=== PATIENT | male | born 1965 | race Caucasian/White ===

== ENCOUNTER 2019-06-20 16:19 | Observation (INO) ==
[2019-06-20 16:41] LABS: Basophils % 0.2 % (0.1-2.0); Eosinophils # 0.1 K/mm3 (0.0-0.4); Eosinophils % 0.3 % (0.1-12.0); Hematocrit 52.9 % (42.0-52.0); Hemoglobin 17.9 g/dL (14.1-18.0); Lymphocytes # 0.6 K/mm3 (0.7-4.5); Lymphocytes % 4.2 % (10-50); Mean Corpuscular HGB Conc 33.9 g/dL (31.8-35.4); Mean Corpuscular Volume 87.6 fl (80-94); Mean Platelet Volume 9.3 fl (7.4-10.4); Monocytes # 0.7 K/mm3 (0.1-1.0); Monocytes % 4.5 % (1.7-9.3); Neutrophils # 13.9 K/mm3 (1.8-7.8); Neutrophils % 90.9 % (37.0-80.0); Platelet Count 176 K/mm3 (142-424); Red Blood Count 6.03 M/mm3 (4.60-6.20); Red Cell Distribution Width 13.2 % (11.5-17.5); White Blood Count 15.3 K/mm3 (4.8-10.8)
[2019-06-20 16:54] LABS: Lymphocytes % 5 % (10-50); Monocytes % 4 % (2-9); Neutrophils % 91 % (42-76); RBC Morphology Normal; Total Cells Counted 100
--- NOTE | 2019-06-20 17:04 | Emergency Department Note ---
ED Disposition Clinical Impression: Tachycardia Disposition: Admitted as Observation Condition on Discharge: Fair Referrals: Provider,Referral, [Primary Care Provider] - - Critical Care Critical Care Time: No Attestation: On 06/20/19, the high probability of a clinically significant, sudden or life threatening deterioration of the following system(s) required my full and direct attention, intervention and personal management. The time I documented below is in addition to time spent performing reported procedures but includes the following listed in this critical care notation. Medical Decision Making - Valentin Inquiry Pt receiving controlled substance: No Valentin was queried for this patient: No Vital Signs: 06/20/19 16:19 06/20/19 17:04 06/20/19 18:30 Temperature 98.8 F Temperature Source Oral Pulse Rate Pulse Rate [Right Radial] 119 H 112 H 108 H Respiratory Rate 18 20 Blood Pressure Blood Pressure [Right Arm] 128/85 143/70 H 148/89 H Blood Pressure Mean [Right Arm] 99 94 108 Blood Pressure Source [Right Arm] Automatic Cuff Automatic Cuff Blood Pressure Position [Right Arm] Sitting Sitting 02 Sat by Pulse Oximetry 97 96 98 Oxygen Delivery Method Room Air Room Air Room Air 06/20/19 20:06 06/20/19 21:53 Temperature 98.2 F 98.3 F Temperature Source Oral Pulse Rate 118 H Pulse Rate [Right Radial] 105 H Respiratory Rate 18 18 Blood Pressure 154/92 H Blood Pressure [Right Arm] 149/81 H Blood Pressure Mean [Right Arm] 103 Blood Pressure Source [Right Arm] Automatic Cuff Blood Pressure Position [Right Arm] Sitting 02 Sat by Pulse Oximetry 98 Oxygen Delivery Method Room Air Room Air - Lab Data Lab Results 06/20/19 16:25: WBC 15.3 H, RBC 6.03, Hgb 17.9, Hct 52.9 H, MCV 87.6, MCH 29.7, MCHC 33.9, RDW 13.2, Plt Count 176, MPV 9.3, Neut % (Auto) 90.9 H, Lymph % (Auto) 4.2 L, [place] % (Auto) 4.5, Eos % (Auto) 0.3, Baso % (Auto) 0.2, Neut # (Auto) 13.9 H, Lymph # (Auto) 0.6 L, [place] # (Auto) 0.7, Eos # (Auto) 0.1, Baso # (Auto) 0.0, Total Counted 100, Neutrophils % (Manual) 91 H, Lymphocytes % (Manual) 5 L, Monocytes % (Manual) 4, Platelet Estimate Normal, RBC Morphology Normal 06/20/19 16:25: Sodium 139, Potassium 3.6, Chloride 102, Carbon Dioxide 20 L, Anion Gap 20.6 H, BUN 28 H, Creatinine 1.12, Estimated Creat Clear 92, Estimated GFR 69, Est GFR ( Amer) 83, Glucose 238 H, Calcium 8.4 L, Total Bilirubin 0.7, Direct Bilirubin 0.1, Indirect Bilirubin 0.6, AST 16, ALT 32, Alkaline Phosphatase 69, Troponin I < 0.02, Total Protein 7.6, Albumin 3.9 06/20/19 17:04: Influenza Type A Ag Negative, Influenza Type B Ag Negative 06/20/19 17:20: Lactate 2.0 06/20/19 18:28: VBG pH 7.32, VBG pCO2 31.3 L, VBG pO2 68.4 H, VBG HCO3 15.7 L, VBG Total CO2 16.6 L, VBG O2 Saturation 93.2 H, VBG Base Excess -10.5 L 06/20/19 18:40: Urine Color Yellow, Urine Appearance Clear, Urine pH 5.5, Ur Specific [place] 1.020, Urine Protein Negative, Urine Glucose (UA) 3+, Urine Ketones 2+, Urine Blood Trace-l, Urine Nitrate Negative, Urine Bilirubin Negative, Urine Urobilinogen 0.2, Ur Leukocyte Esterase Negative, Urine RBC 3-5, Urine WBC 3-5, Ur Squamous Epith Cells Occasional, Urine Bacteria Trace 06/20/19 20:01: POC Glucose 133 H 06/20/19 20:10: Troponin I 0.03 Result diagrams: 06/20/19 16:25 06/20/19 16:25 Orders (Tests/Meds): ED MEDICATIONS Generic Name Dose Route Start Last Admin Trade Name Freq PRN Reason Stop Dose Admin Lactated Ringer's 500 mls @ 999 mls/hr 06/20/19 17:00 06/20/19 17:00 Lactated Ringer's 1000 Ml Bag IV 06/20/19 17:30 Not Given .Q31M LUIS EDUARDO Lactated Ringer's 1,000 mls @ 999 mls/hr 06/20/19 17:15 06/20/19 17:02 Lactated Ringer's 1000 Ml Bag IV 06/20/19 18:15 999 mls/hr .Q1H1M LUIS EDUARDO Administration Lactated Ringer's 1,000 mls @ 999 mls/hr 06/20/19 18:30 06/20/19 18:44 Lactated Ringer's 1000 Ml Bag IV 06/20/19 19:30 Not Given .Q1H1M LUIS EDUARDO Sodium Chloride 1,000 mls @ 999 mls/hr 06/20/19 18:45 06/20/19 18:46 Sod Chlor 0.9% 1000ml Bag IV 06/20/19 19:45 999 mls/hr .Q1H1M LUIS EDUARDO Administration Sodium Chloride 10 ml 06/20/19 18:19 Saline Flush 10ml Syringe IV 06/21/19 06:19 NEEDED PRN Maintain IV Site Discontinued Medications Generic Name Dose Route Start Last Admin Trade Name Freq PRN Reason Stop Dose Admin Ioversol 100 ml 06/20/19 20:00 06/20/19 20:01 Rad-Optiray 350 100ml Vial IV 06/20/19 20:01 100 ml ONCE ONE Administration Protocol Sodium Chloride 50 ml 06/20/19 20:00 06/20/19 20:01 Rad-Ns 50ml Vial IV 06/20/19 20:01 50 ml ONCE ONE Administration Sodium Chloride 10 ml 06/20/19 20:00 06/20/19 20:01 Rad-Saline Flush 10ml Syringe IV 06/20/19 20:01 10 ml ONCE ONE Administration ORDERS Category Date Time Status CT abdomen pelvis w con Stat Cat Scan 06/20/19 18:[address] angio chest Stat Cat Scan 06/20/19 18:47 Taken XR chest 2V Stat Exams 06/20/19 16:26 Taken Free T4 (Free Thyroxine) Routine Lab 06/20/19 20:10 Received Magnesium Stat Lab 06/20/19 20:10 Received Thyroid Stimulating Hormone Routine Lab 06/20/19 20:10 Received Troponin I Q3H Lab 06/20/19 23:10 Ordered Blood Culture Stat Micro 06/20/19 21:05 Received Arterial Blood Gas Routine RT 06/20/19 18:27 Received VBG [Venous Blood Gas] Stat RT 06/20/19 17:47 Ordered Medical Decision Narrative: In summary patient is a nontoxic-appearing 54-year-old male who presents to the emergency department for evaluation of tachycardia. She is vital signs within normal limits except for his heart rate of 119. Patient's exam otherwise within normal limits. EKG reviewed showing sinus tachycardia no ST elevation, depression, or QT prolongation. No evidence of arrhythmia such as A. fib, patient's EKG consistent with SVT. Differential diagnosis is broad for this patient including dehydration, sepsis, or inflammatory response. Given this ordered CBC, CMP, lactate, influenza swab, urinalysis, chest x-ray, troponin panel. Given 1 L IV fluid bolus. Patient's initial labs returned and show him to have a white count of 15.8 with a left-sided shift. Noted to have an anion gap of 20, given this VBG ordered. The labs nonactionable. Patient's VBG shows patient to have a pH of 7.32. With no evidence of acidosis,, or lab value pointing towards likely cause of the patient's tachycardia, ordered CTA chest, CT abdomen and pelvis. On re-evaluation patient still tacky with heart rates ranging from 110 - 120. Second liter bolus of IV fluids. Patient CTs returned showing no evidence of pulmonary embolism or acute pulmonary disease, patient does have evidence of chronic granulomatosis. CT ofhis abdomen and pelvis were negative for any acute disease. On reevaluation patient continues to be tachycardic. With continued tachycardia with no known source, and leukocytosis, I believe patient would benefit from inpatient admission for further evaluation. Dr. Katharine Diaz is agreed to admit the patient for further evaluation. He recommends ordering TSH, magnesium, cardiac echo for the morning. General Adult HPI - General Chief complaint: Arrhythmia/Palpitations Stated complaint: tachycardia Time Seen by Provider: 06/20/19 16:30 Mode of Arrival: Ambulatory Limitations: No Limitations Description of Symptoms (Recalled from ER Triage Doc. by RN): pt presents to ed with c/o tachycardia. pt states that he is having reflux symptoms. pt states he ate some fried chicken last night and he battled that throughout the night, along with his "heart beating out of his chest" and he is still having some reflux symptoms. pt was at his doctor today and was told his heartrate was higher than normal. - History of Present Illness HPI narrative: Patient is a 54-year-old male with a past medical history of type 2 diabetes, who presents to the emergency department for evaluation of tachycardia. States he awoke at 2 AM this morning heart palpitations. States that he felt lightheaded, but denies any chest pain or shortness of breath. She states the symptoms have continued throughout the day so he presented to his clinic he was noted to be tachycardic on exam. Patient sent to the emergency department for further evaluation. Here in the emergency department patient denies any recent illness, any fevers, chills, nausea, vomiting, chest pain, shortness of breath, abdominal pain, or dysuria. - Related Data Home Medications Medication Instructions Recorded Confirmed Unobtainable 06/20/19 06/20/19 Allergies Allergy/AdvReac Type Severity Reaction Status Date / Time No Known Allergies Allergy Verified 06/20/19 16:26 [facility] History - Hepatitis A Screen Drug use history?: No High risk sexual behaviors?: No History of sexually transmitted infection?: No Currently employed?: No Childcare worker?: No Do you have indoor plumbing?: Yes Do you have electricity?: Yes Attestation statement:: This patient has been screened for Hepatitis A risk factors. I have reviewed the patient's past medical history: Yes Medical History: Reports:: Diabetes Mellitus Type 2 Denies:: Diabetes Mellitus Type 1 - Social History Smoking Status: Former smoker Alcohol Intake: never Occupational Status: employed ROS Obtained: Yes All systems reviewed & no additional complaints Physical Exam - General General appearance: alert, in no apparent distress - Head Head exam: atraumatic - Eye Eye exam: Present: normal appearance - Respiratory Respiratory exam: Present: normal lung sounds bilaterally - Cardiovascular Cardiovascular exam: Present: normal rhythm, tachycardia - Abdominal Exam Abdominal exam: Present: soft. Absent: distention, tenderness - Neurological Exam Neurological exam: Present: alert, oriented X3 - Psychiatric Psychiatric exam: Present: normal affect, normal mood
[2019-06-20 17:12] LABS: Alanine Aminotransferase 32 U/L (21-72); Albumin Level 3.9 g/dL (3.4-5.0); Alkaline Phosphatase 69 U/L (46-116); Anion Gap 20.6 mEq/L (5-15); Aspartate Amino Transferase 16 U/L (15-37); Bilirubin,Direct 0.1 mg/dL (0.0-0.2); Bilirubin,Indirect 0.6 mg/dL (0.0-0.9); Bilirubin,Total 0.7 mg/dL (0.2-1.0); Blood Urea Nitrogen 28 mg/dL (7-18); Calcium 8.4 mg/dL (8.5-10.1); Carbon Dioxide 20 mmol/L (21.0-32.0); Chloride 102 mmol/L (98-107); Glucose 238 mg/dL (74-106); Sodium 139 mmol/L (137-145); Total Protein,Serum 7.6 g/dL (6.4-8.2)
[2019-06-20 18:29] LABS: VBG Base Excess -10.5 mmol/L (-2.4-2.3); VBG HCO3 15.7 mmol/L (23-30); VBG Oxygen Saturation 93.2 % (50-70); VBG PCO2 31.3 mmol/L (35-51); VBG PH 7.32 mmol/L (7.31-7.41); VBG PO2 68.4 mmol/L (28-40); VBG Total CO2 16.6 mmol/L (23-27)
[2019-06-20 18:44] LABS: Microscopic, Urine URINE MICROSCOPIC (MICROSCOPIC)
[2019-06-20 18:54] LABS: Appearance,Urine CLEAR (Clear); Bilirubin,Urine Negative (Negative); Blood, Urine TRACE-L (Negative); Color,Urine YELLOW (Yellow); Glucose,Urine (UA) 3+ (Negative); Ketones,Urine 2+ (Negative); Leukocyte Esterase,Urine Negative (Negative); PH,Urine 5.5 (5.0-8.5); Protein,Urine Negative (Negative); Urobilinogen,Urine 0.2 EU/dl (0.2)
[2019-06-20 19:08] LABS: Bacteria,Urine Trace /lpf; Squamous Epithelial Cell,Urine Occasional #/hpf (0-5)
[2019-06-20 21:50] LABS: Free T4 (Free Thyroxine) 1.37 ng/dl (0.76-1.46); Thyroid Stimulating Hormone 1.24 uIU/ml (0.358-3.740)
[2019-06-21 06:49] LABS: Basophils % 0.5 % (0.1-2.0); Eosinophils % 0.3 % (0.1-12.0); Hematocrit 48.6 % (42.0-52.0); Lymphocytes # 1.2 K/mm3 (0.7-4.5); Mean Corpuscular HGB Conc 33.2 g/dL (31.8-35.4); Mean Corpuscular Volume 92.1 fl (80-94); Mean Platelet Volume 9.5 fl (7.4-10.4); Monocytes # 0.6 K/mm3 (0.1-1.0); Monocytes % 6.5 % (1.7-9.3); Neutrophils # 6.7 K/mm3 (1.8-7.8); Neutrophils % 78.7 % (37.0-80.0); Platelet Count 153 K/mm3 (142-424); Red Blood Count 5.28 M/mm3 (4.60-6.20); Red Cell Distribution Width 13.3 % (11.5-17.5); White Blood Count 8.6 K/mm3 (4.8-10.8)
[2019-06-21 07:04] LABS: Anion Gap 20.7 mEq/L (5-15); Chol/HDL Ratio 2.4 (1-3.5)
--- NOTE | 2019-06-21 07:19 | Pharmacy Consult Notes ---
[facility] Pharmacy VTE Monitoring - Patient Demographics Admission date: 06/20/19 Report Date: 06/21/19 Time: 07:19 Allergies/Adverse Reactions: Patient Allergies No Known Allergies Allergy (Verified 06/20/19 16:26) Height: 1.75 m Weight: 85.389 kg Patient Problems: Current Active Problems Tachycardia (Acute) - VTE Risk Labs: VTE Related Lab Results Hgb 17.9 g/dL (14.1-18.0) 06/20/19 16:25 Hct 48.6 % (42.0-52.0) 06/21/19 06:34 Plt Count 153 K/mm3 (142-424) 06/21/19 06:34 BUN 19 mg/dL (7-18) H D 06/21/19 06:34 Creatinine 0.89 mg/dL (0.70-1.30) D 06/21/19 06:34 Estimated Creat Clear 117 mL/min (50-200) 06/21/19 06:34 VTE Score: 1 VTE Risk Level: Very Low Risk - Prophylaxis VTE Prophylaxis Ordered?: Yes Types of VTE Prophylaxis: TEDS Knee High Location of Applied Device: Bilateral Lower Extremeties
--- NOTE | 2019-06-21 08:58 | History & Physical Report ---
*Admission Date: 06/20/19 *Chief complaint: Tachycardia *History of present illness: 54-year-old white male with type 2 diabetes and hyperlipidemia presented to the emergency department with tachycardia. He reports that 3 AM in the morning before admission he woke up with a feeling of heart racing and some minimal GERD symptoms. He had eaten a fairly large dinner of fried chicken, a bowl of cereal and cake the evening before and thought this was from the food. He was able to go back to sleep but throughout the day yesterday continued to have tachycardia. He had an appointment with his family practitioner in [place], [place] for a wellness exam yesterday afternoon. He went to the wellness exam and was noted to have a pulse rate of 120 and was told by his physician to "go somewhere and get that checked out." He then reported to the emergency department where a very nice and thorough work-up was done including normal labs including TSH, electrolytes and normal EKG. CT scan of chest was done to rule out PE and this was negative. CT of abdomen and pelvis to rule out occult infection was done because of leukocytosis. Influenza serologic testing was negative. Patient denies any cold or cough medicines recently. Denies illicit drugs or take any nonprescribed substances specifically cocaine or marijuana. Patient does not smoke. He does occasionally drink to excess but notes that his last alcohol ingestion was 1 beer 3 days before admission with supper. He does note an episode of shortness of air and muscle fatigue after moving a very heavy filing cabinet 24 hours before the episode started. He was admitted to observation for telemetry monitoring. [facility] History I have reviewed the patient's past medical history: Yes Medical History: Reports:: Cancer, Diabetes Mellitus Type 2, Hyperlipidemia, Hypertension Denies:: Diabetes Mellitus Type 1, MRSA *Have you ever received a pneumonia vaccine?: Yes *Have you received a flu vaccine this season?: Yes Other Surgeries: Yes: Skin Cancer Excision (From behind left ear.) Amputation: No Fractures: No - *Social History Educational Level: Attended High School Smoking Status: Former smoker Alcohol Intake: current Alcohol Intake Frequency:: a few times a month *Occupational Status:: employed Household Members: spouse *Travel in the last 8 weeks: None Family Hx:: Diabetes, Heart Attack, Hypertension, Alcoholism Review of Systems - Review of Systems Review of systems:: pertinent systems reviewed and negative unless documented below Please see HPI. 10 point review of systems otherwise negative although patient does endorse symptoms of cold and cough recently with sinus pressure and some headache. Denies productive cough. Meds Home Medications Medication Instructions Recorded Confirmed Type Dapagliflozin Propanediol [Farxiga] 5 mg PO DAILY 06/20/19 06/20/19 History Metformin HCl [Metformin 1000mg 1,000 mg PO BID 06/20/19 06/20/19 History Tablets] Pravastatin Sodium [Pravachol] 20 mg PO DAILY 06/20/19 06/20/19 History Sitagliptin Phosphate [Januvia 25 mg PO DAILY 06/20/19 06/20/19 History 25mg Tablet] glyBURIDE [Diabeta 5mg tablet] 10 mg PO BID 06/20/19 06/20/19 History lisinopriL [Lisinopril 20mg Tab] 20 mg PO DAILY 06/20/19 06/20/19 History Allergies Allergy/AdvReac Type Severity Reaction Status Date / Time No Known Allergies Allergy Verified 06/20/19 16:26 Exam Vital signs and Labs for Last 24 Hours: Temp Pulse Resp BP Pulse Ox 98.6 F 115 H 18 151/95 H 94 L 06/21/19 08:00 06/21/19 08:00 06/21/19 08:00 06/21/19 08:00 06/21/19 08:00 Laboratory Results - last 24 hr 06/20/19 16:25: WBC 15.3 H, RBC 6.03, Hgb 17.9, Hct 52.9 H, MCV 87.6, MCH 29.7, MCHC 33.9, RDW 13.2, Plt Count 176, MPV 9.3, Neut % (Auto) 90.9 H, Lymph % (Auto) 4.2 L, [place] % (Auto) 4.5, Eos % (Auto) 0.3, Baso % (Auto) 0.2, Neut # (Auto) 13.9 H, Lymph # (Auto) 0.6 L, [place] # (Auto) 0.7, Eos # (Auto) 0.1, Baso # (Auto) 0.0, Total Counted 100, Neutrophils % (Manual) 91 H, Lymphocytes % (Manual) 5 L, Monocytes % (Manual) 4, Platelet Estimate Normal, RBC Morphology Normal 06/20/19 16:25: Sodium 139, Potassium 3.6, Chloride 102, Carbon Dioxide 20 L, Anion Gap 20.6 H, BUN 28 H, Creatinine 1.12, Estimated Creat Clear 92, Estimated GFR 69, Est GFR ( Amer) 83, Glucose 238 H, Calcium 8.4 L, Total Bilirubin 0.7, Direct Bilirubin 0.1, Indirect Bilirubin 0.6, AST 16, ALT 32, Alkaline Phosphatase 69, Troponin I < 0.02, Total Protein 7.6, Albumin 3.9 06/20/19 17:04: Influenza Type A Ag Negative, Influenza Type B Ag Negative 06/20/19 17:20: Lactate 2.0 06/20/19 18:28: VBG pH 7.32, VBG pCO2 31.3 L, VBG pO2 68.4 H, VBG HCO3 15.7 L, VBG Total CO2 16.6 L, VBG O2 Saturation 93.2 H, VBG Base Excess -10.5 L 06/20/19 18:40: Urine Color Yellow, Urine Appearance Clear, Urine pH 5.5, Ur Specific [place] 1.020, Urine Protein Negative, Urine Glucose (UA) 3+, Urine Ketones 2+, Urine Blood Trace-l, Urine Nitrate Negative, Urine Bilirubin Negative, Urine Urobilinogen 0.2, Ur Leukocyte Esterase Negative, Urine RBC 3-5, Urine WBC 3-5, Ur Squamous Epith Cells Occasional, Urine Bacteria Trace 06/20/19 20:01: POC Glucose 133 H 06/20/19 20:10: Troponin I 0.03 06/20/19 20:10: Magnesium 1.7 06/20/19 20:10: TSH 1.24, Free T4 1.37 06/20/19 23:11: Troponin I 0.03 06/21/19 06:34: WBC 8.6 D, RBC 5.28, Hgb 16.0 D, Hct 48.6, MCV 92.1, MCH 30.5, MCHC 33.2, RDW 13.3, Plt Count 153, MPV 9.5, Neut % (Auto) 78.7, Lymph % (Auto) 14.0, [place] % (Auto) 6.5, Eos % (Auto) 0.3, Baso % (Auto) 0.5, Neut # (Auto) 6.7, Lymph # (Auto) 1.2, [place] # (Auto) 0.6, Eos # (Auto) 0.0, Baso # (Auto) 0.0 06/21/19 06:34: Sodium 139, Potassium 3.7, Chloride 105, Carbon Dioxide 17 L, Anion Gap 20.7 H, BUN 19 H D, Creatinine 0.89 D, Estimated Creat Clear 117, Estimated GFR 90, Est GFR ( Amer) 109 D, Glucose 162 H D, Calcium 8.0 L, Triglycerides 77, Cholesterol 93 L, LDL Cholesterol 40, VLDL Cholesterol 15, HDL Cholesterol 38, Cholesterol/HDL Ratio 2.4 I & O for Last 24 hours: Intake & Output 06/18/19 06/19/19 06/20/19 06/21/19 11:59 11:59 11:59 11:59 Intake Total 2620 / 2620 Balance 2620 / 2620 Weight 188 lb 4 oz - *Routine HEENT Exam Head: Present: normocephalic Eye: Present: EOMI, PERRL ENT: Present: mucous membranes moist, sinus tenderness - *Routine Neck Exam Present: supple. Absent: lymphadenopathy - *Routine Respiratory Exam Present: CTA bilaterally - *Routine Cardiovascular Exam Present: RRR, tachycardia - *Routine Abdominal Exam Present: soft, normoactive bowel sounds. Absent: tenderness - *Routine Extremities Exam Absent: cyanosis, clubbing, edema - *Routine Skin Exam Present: warm. Absent: rash - *Routine Neurological Exam Present: alert, oriented X3 - Detailed Eye Exam Eyelids: Left normal inspection Assessment and Plan (1) Acute URI Current visit: Yes Status: Acute Category: Medical Code(s): J06.9 - Acute upper respiratory infection, unspecified (2) Acute febrile illness Current visit: Yes Status: Acute Category: Medical Code(s): R50.9 - Fever, unspecified (3) Leukocytosis Current visit: Yes Status: Acute Category: Medical Code(s): D72.829 - Elevated white blood cell count, unspecified (4) Diabetes mellitus type 2, noninsulin dependent Current visit: Yes Status: Acute Category: Medical Code(s): E11.9 - Type 2 diabetes mellitus without complications (5) GERD (gastroesophageal reflux disease) Current visit: Yes Status: Acute Category: Medical Code(s): K21.9 - Gastro-esophageal reflux disease without esophagitis (6) Tachycardia Current visit: Yes Status: Acute Category: Medical Code(s): R00.0 - Tachycardia, unspecified Interesting problem. I think his root cause of tachycardia is physiologic and possibly related to his febrile illness. Echocardiogram however preliminary shows slightly enlarged left atrial size, we will ask cardiology for their opinion. Check upper respiratory PCR and CT/MRI if available of the brain to evaluate for sinusitis issues.
--- NOTE | 2019-06-21 11:08 | Consult Report ---
History of Present Illness Consult date: 06/21/19 Requesting physician: Wes Alcantar Chief complaint: Tachycardia Additional Medical History:: 1. Ex-smoker A. Tobacco use of 1.5 packs/day for 27 years, discontinued approximately 2009 2. Diabetes mellitus, type II, diagnosed approximately 2007 3. Hypertension 4. Hyperlipidemia, on statin History of present illness: 54-year-old white male with type 2 diabetes and hyperlipidemia presented to the emergency department with tachycardia. He reports that 3 AM in the morning before admission he woke up with a feeling of heart racing and some minimal GERD symptoms. He had eaten a fairly large dinner of fried chicken, a bowl of cereal and cake the evening before and thought this was from the food. He was able to go back to sleep but throughout the day yesterday continued to have tachycardia. He had an appointment with his family practitioner in [place], [place] for a wellness exam yesterday afternoon. He went to the wellness exam and was noted to have a pulse rate of 120 and was told by his physician to "go somewhere and get that checked out." He then reported to the emergency department where a very nice and thorough work-up was done including normal labs including TSH, electrolytes and normal EKG. CT scan of chest was done to rule out PE and this was negative. CT of abdomen and pelvis to rule out occult infection was done because of leukocytosis. Influenza serologic testing was negative. Patient denies any cold or cough medicines recently. Denies illicit drugs or take any nonprescribed substances specifically cocaine or marijuana. Patient does not smoke. He does occasionally drink to excess but notes that his last alcohol ingestion was 1 beer 3 days before admission with supper. He does note an episode of shortness of air and muscle fatigue after moving a very heavy filing cabinet 24 hours before the episode started. He was admitted to observation for telemetry monitoring. The above per Dr. 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 [facility] History Medical History: Reports:: Cancer, Diabetes Mellitus Type 2, Hyperlipidemia, Hypertension Denies:: Diabetes Mellitus Type 1, MRSA *Have you ever received a pneumonia vaccine?: Yes *Have you received a flu vaccine this season?: Yes Other Surgeries: Yes: Skin Cancer Excision (From behind left ear.) Amputation: No Fractures: No - *Social History Educational Level: Attended High School Smoking Status: Former smoker Alcohol Intake: current Alcohol Intake Frequency:: a few times a month *Occupational Status:: employed Household Members: spouse *Travel in the last 8 weeks: None Family Hx:: Diabetes, Heart Attack, Hypertension, Alcoholism Meds Home Medications Medication Instructions Recorded Confirmed Type Dapagliflozin Propanediol [Farxiga] 5 mg PO DAILY 06/20/19 06/20/19 History Metformin HCl [Metformin 1000mg 1,000 mg PO BID 06/20/19 06/20/19 History Tablets] Pravastatin Sodium [Pravachol] 20 mg PO DAILY 06/20/19 06/20/19 History Sitagliptin Phosphate [Januvia 25 mg PO DAILY 06/20/19 06/20/19 History 25mg Tablet] glyBURIDE [Diabeta 5mg tablet] 10 mg PO BID 06/20/19 06/20/19 History lisinopriL [Lisinopril 20mg Tab] 20 mg PO DAILY 06/20/19 06/20/19 History Allergies Allergy/AdvReac Type Severity Reaction Status Date / Time No Known Allergies Allergy Verified 06/20/19 16:26 Review of Systems - *Cardiovascular Reports fast heart rate, Denies chest pain - *Respiratory Denies chest congestion, Denies shortness of breath - *Gastrointestinal Reports nausea, Denies loose stools, Denies vomiting - *Genitourinary Denies blood in urine - *Musculoskeletal Denies joint pain, Denies back pain Exam Vital signs and Labs for Last 24 Hours: Temp Pulse Resp BP Pulse Ox 98.6 F 115 H 18 151/95 H 94 L 06/21/19 08:00 06/21/19 08:00 06/21/19 08:00 06/21/19 08:00 06/21/19 08:00 Laboratory Results - last 24 hr 06/20/19 16:25: WBC 15.3 H, RBC 6.03, Hgb 17.9, Hct 52.9 H, MCV 87.6, MCH 29.7, MCHC 33.9, RDW 13.2, Plt Count 176, MPV 9.3, Neut % (Auto) 90.9 H, Lymph % (Auto) 4.2 L, [place] % (Auto) 4.5, Eos % (Auto) 0.3, Baso % (Auto) 0.2, Neut # (Auto) 13.9 H, Lymph # (Auto) 0.6 L, [place] # (Auto) 0.7, Eos # (Auto) 0.1, Baso # (Auto) 0.0, Total Counted 100, Neutrophils % (Manual) 91 H, Lymphocytes % (Manual) 5 L, Monocytes % (Manual) 4, Platelet Estimate Normal, RBC Morphology Normal 06/20/19 16:25: Sodium 139, Potassium 3.6, Chloride 102, Carbon Dioxide 20 L, Anion Gap 20.6 H, BUN 28 H, Creatinine 1.12, Estimated Creat Clear 92, Estimated GFR 69, Est GFR ( Amer) 83, Glucose 238 H, Calcium 8.4 L, Total Bilirubin 0.7, Direct Bilirubin 0.1, Indirect Bilirubin 0.6, AST 16, ALT 32, Alkaline Phosphatase 69, Troponin I < 0.02, Total Protein 7.6, Albumin 3.9 06/20/19 17:04: Influenza Type A Ag Negative, Influenza Type B Ag Negative 06/20/19 17:20: Lactate 2.0 06/20/19 18:28: VBG pH 7.32, VBG pCO2 31.3 L, VBG pO2 68.4 H, VBG HCO3 15.7 L, VBG Total CO2 16.6 L, VBG O2 Saturation 93.2 H, VBG Base Excess -10.5 L 06/20/19 18:40: Urine Color Yellow, Urine Appearance Clear, Urine pH 5.5, Ur Specific [place] 1.020, Urine Protein Negative, Urine Glucose (UA) 3+, Urine Ketones 2+, Urine Blood Trace-l, Urine Nitrate Negative, Urine Bilirubin Negative, Urine Urobilinogen 0.2, Ur Leukocyte Esterase Negative, Urine RBC 3-5, Urine WBC 3-5, Ur Squamous Epith Cells Occasional, Urine Bacteria Trace 06/20/19 20:01: POC Glucose 133 H 06/20/19 20:10: Troponin I 0.03 06/20/19 20:10: Magnesium 1.7 06/20/19 20:10: TSH 1.24, Free T4 1.37 06/20/19 23:11: Troponin I 0.03 06/21/19 06:34: WBC 8.6 D, RBC 5.28, Hgb 16.0 D, Hct 48.6, MCV 92.1, MCH 30.5, MCHC 33.2, RDW 13.3, Plt Count 153, MPV 9.5, Neut % (Auto) 78.7, Lymph % (Auto) 14.0, [place] % (Auto) 6.5, Eos % (Auto) 0.3, Baso % (Auto) 0.5, Neut # (Auto) 6.7, Lymph # (Auto) 1.2, [place] # (Auto) 0.6, Eos # (Auto) 0.0, Baso # (Auto) 0.0 06/21/19 06:34: Sodium 139, Potassium 3.7, Chloride 105, Carbon Dioxide 17 L, Anion Gap 20.7 H, BUN 19 H D, Creatinine 0.89 D, Estimated Creat Clear 117, Estimated GFR 90, Est GFR ( Amer) 109 D, Glucose 162 H D, Calcium 8.0 L, Triglycerides 77, Cholesterol 93 L, LDL Cholesterol 40, VLDL Cholesterol 15, HDL Cholesterol 38, Cholesterol/HDL Ratio 2.4 I & O for Last 24 hours: Intake & Output 06/18/19 06/19/19 06/20/19 06/21/19 11:59 11:59 11:59 11:59 Intake Total 2620 / 2620 Balance 2620 / 2620 Weight 188 lb 4 oz - *Routine HEENT Exam Head: Present: normocephalic Eye: Present: EOMI, PERRL ENT: Present: mucous membranes moist - *Routine Neck Exam Present: supple. Absent: JVD, carotid bruit - *Routine Respiratory Exam Present: CTA bilaterally. Absent: accessory muscle use, rales, rhonchi, wheezes - *Routine Cardiovascular Exam Present: RRR, tachycardia. Absent: murmur, gallop, rubs - *Routine Abdominal Exam Present: soft. Absent: tenderness, distended, guarding - *Routine Extremities Exam Absent: edema, calf tenderness - *Routine Neurological Exam Present: alert, oriented X3, moving all extremities Assessment and Plan (1) Acute URI Current visit: Yes Status: Acute Category: Medical Code(s): J06.9 - Acute upper respiratory infection, unspecified (2) Acute febrile illness Current visit: Yes Status: Acute Category: Medical Code(s): R50.9 - Fever, unspecified (3) Leukocytosis Current visit: Yes Status: Acute Category: Medical Code(s): D72.829 - Elevated white blood cell count, unspecified (4) Diabetes mellitus type 2, noninsulin dependent Current visit: Yes Status: Acute Category: Medical Code(s): E11.9 - Type 2 diabetes mellitus without complications (5) GERD (gastroesophageal reflux disease) Current visit: Yes Status: Acute Category: Medical Code(s): K21.9 - G kota-esophageal reflux disease without esophagitis (6) Tachycardia Current visit: Yes Status: Acute Category: Medical Code(s): R00.0 - Tachycardia, unspecified (7) HHD (hypertensive heart disease) Current visit: Yes Status: Acute Category: Medical Code(s): I11.9 - Hypertensive heart disease without heart failure - Assessment and plan all Dx Assessment and Plan for all problems:: 1. Tachycardia with echocardiographic evidence of hypertensive heart disease and hyperdynamic left ventricular ejection fraction. Recommend starting the patient on bisoprolol 10 mg daily and titrating up as needed. 2. Cardiac risk factors including diabetes mellitus, hypertension, hyperlipidemia and remote tobacco use. Recommend outpatient stress testing once the patient's heart rate has improved. 3. Patient could be discharged home later today with outpatient follow-up in 1 to 2 weeks.
[2019-06-21 12:22] LABS: Coronavirus 229E Not Detected (NotDetected); Coronavirus NL63 Not Detected (NotDetected); Coronavirus OC43 Not Detected (NotDetected); Coronovirus HKU1,PCR Not Detected (NotDetected)
--- NOTE | 2019-06-21 16:55 | Discharge Summary ---
General - General Admission date:: 06/20/19 Discharge date: 06/21/19 HPI HPI: 54-year-old white male with type 2 diabetes and hyperlipidemia presented to the emergency department with tachycardia. He reports that 3 AM in the morning before admission he woke up with a feeling of heart racing and some minimal GERD symptoms. He had eaten a fairly large dinner of fried chicken, a bowl of cereal and cake the evening before and thought this was from the food. He was able to go back to sleep but throughout the day yesterday continued to have tachycardia. He had an appointment with his family practitioner in [place], [place] for a wellness exam yesterday afternoon. He went to the wellness exam and was noted to have a pulse rate of 120 and was told by his physician to "go somewhere and get that checked out." He then reported to the emergency department where a very nice and thorough work-up was done including normal labs including TSH, electrolytes and normal EKG. CT scan of chest was done to rule out PE and this was negative. CT of abdomen and pelvis to rule out occult infection was done because of leukocytosis. Influenza serologic testing was negative. Patient denies any cold or cough medicines recently. Denies illicit drugs or t queta any nonprescribed substances specifically cocaine or marijuana. Patient does not smoke. He does occasionally drink to excess but notes that his last alcohol ingestion was 1 beer 3 days before admission with supper. He does note an episode of shortness of air and muscle fatigue after moving a very heavy filing cabinet 24 hours before the episode started. He was admitted to observation for telemetry monitoring. Hospital Course Hospital Course: Patient was admitted, ruled out for CA, cardiology consultation obtained, multiple lab testing normal. Cardiology impression and plan below 1. Tachycardia with echocardiographic evidence of hypertensive heart disease and hyperdynamic left ventricular ejection fraction. Recommend starting the patient on bisoprolol 10 mg daily and titrating up as needed. 2. Cardiac risk factors including diabetes mellitus, hypertension, hyperlipidemia and remote tobacco use. Recommend outpatient stress testing once the patient's heart rate has improved. 3. Patient could be discharged home later today with outpatient follow-up in 1 to 2 weeks. Patient discharged on bisoprolol. Follow-up will be scheduled. Objective Vital signs: Temp Pulse Resp BP Pulse Ox 98.4 F 106 H 18 113/80 96 06/21/19 12:00 06/21/19 12:00 06/21/19 12:00 06/21/19 12:00 06/21/19 12:00 no acute distress - *Routine HEENT Exam Head: Present: normocephalic Eye: Present: EOMI, PERRL ENT: Present: mucous membranes moist - *Routine Neck Exam Present: supple - *Routine Respiratory Exam Present: CTA bilaterally - *Routine Cardiovascular Exam Present: RRR - *Routine Abdominal Exam Present: soft, normoactive bowel sounds. Absent: tenderness - *Routine Extremities Exam Absent: cyanosis, clubbing, edema - *Routine Skin Exam Present: warm. Absent: rash - Detailed Eye Exam Eyelids: Bilateral normal inspection Results Labs on day of discharge: Labs from last 24 hours 06/21/19 06/21/19 06/21/19 12:10 06:34 06:34 WBC 8.6 D RBC 5.28 Hgb 16.0 D Hct 48.6 MCV 92.1 MCH 30.5 MCHC 33.2 RDW 13.3 Plt Count 153 MPV 9.5 Neut % (Auto) 78.7 Lymph % (Auto) 14.0 [place] % (Auto) 6.5 Eos % (Auto) 0.3 Baso % (Auto) 0.5 Neut # (Auto) 6.7 Lymph # (Auto) 1.2 [place] # (Auto) 0.6 Eos # (Auto) 0.0 Baso # (Auto) 0.0 Total Counted Neutrophils % (Manual) Lymphocytes % (Manual) Monocytes % (Manual) Platelet Estimate RBC Morphology VBG pH VBG pCO2 VBG pO2 VBG HCO3 VBG Total CO2 VBG O2 Saturation VBG Base Excess Sodium 139 Potassium 3.7 Chloride 105 Carbon Dioxide 17 L Anion Gap 20.7 H BUN 19 H D Creatinine 0.89 D Estimated Creat Clear 117 Estimated GFR 90 Est GFR ( Amer) 109 D Glucose 162 H D POC Glucose Lactate Calcium 8.0 L Magnesium Total Bilirubin Direct Bilirubin Indirect Bilirubin AST ALT Alkaline Phosphatase Troponin I Total Protein Albumin Triglycerides 77 Cholesterol 93 L LDL Cholesterol 40 VLDL Cholesterol 15 HDL Cholesterol 38 Cholesterol/HDL Ratio 2.4 TSH Free T4 Urine Color Urine Appearance Urine pH Ur Specific [place] Urine Protein Urine Glucose (UA) Urine Ketones Urine Blood Urine Nitrate Urine Bilirubin Urine Urobilinogen Ur Leukocyte Esterase Urine RBC Urine WBC Ur Squamous Epith Cells Urine Bacteria Chlamy pneumoniae PCR Not detected Adenovirus (PCR) Not detected B. pertussis DNA (PCR) Not detected Coronavirus OC43 (PCR) Not detected Coronavirus HKU1 (PCR) Not detected Coronavirus 229E (PCR) Not detected Coronavirus NL63 (PCR) Not detected Human Metapneumovir PCR Not detected Influenza A (H1) PCR Not detected Influ A (H1N1) PCR Not detected Influenza A (H3) PCR Not detected Influenza Type A Ag Influenza Type A (PCR) Not detected Influenza Type B Ag Influenza Type B (PCR) Not detected M. pneumoniae (PCR) Not detected Parainfluenza 1 (PCR) Not detected Parainfluenza 2 (PCR) Not detected Parainfluenza 3 (PCR) Not detected Parainfluenza 4 (PCR) Not detected RSV (PCR) Not detected Entero/Rhino (PCR) Not detected 06/20/19 06/20/19 06/20/19 23:11 20:10 20:10 WBC RBC Hgb Hct MCV MCH MCHC RDW Plt Count MPV Neut % (Auto) Lymph % (Auto) [place] % (Auto) Eos % (Auto) Baso % (Auto) Neut # (Auto) Lymph # (Auto) [place] # (Auto) Eos # (Auto) Baso # (Auto) Total Counted Neutrophils % (Manual) Lymphocytes % (Manual) Monocytes % (Manual) Platelet Estimate RBC Morphology VBG pH VBG pCO2 VBG pO2 VBG HCO3 VBG Total CO2 VBG O2 Saturation VBG Base Excess Sodium Potassium Chloride Carbon Dioxide Anion Gap BUN Creatinine Estimated Creat Clear Estimated GFR Est GFR ( Amer) Glucose POC Glucose Lactate Calcium Magnesium 1.7 Total Bilirubin Direct Bilirubin Indirect Bilirubin AST ALT Alkaline Phosphatase Troponin I 0.03 Total Protein Albumin Triglycerides Cholesterol LDL Cholesterol VLDL Cholesterol HDL Cholesterol Cholesterol/HDL Ratio TSH 1.24 Free T4 1.37 Urine Color Urine Appearance Urine pH Ur Specific [place] Urine Protein Urine Glucose (UA) Urine Ketones Urine Blood Urine Nitrate Urine Bilirubin Urine Urobilinogen Ur Leukocyte Esterase Urine RBC Urine WBC Ur Squamous Epith Cells Urine Bacteria Chlamy pneumoniae PCR Adenovirus (PCR) B. pertussis DNA (PCR) Coronavirus OC43 (PCR) Coronavirus HKU1 (PCR) Coronavirus 229E (PCR) Coronavirus NL63 (PCR) Human Metapneumovir PCR Influenza A (H1) PCR Influ A (H1N1/) PCR Influenza A (H3) PCR Influenza Type A Ag Influenza Type A (PCR) Influenza Type B Ag Influenza Type B (PCR) M. pneumoniae (PCR) Parainfluenza 1 (PCR) Parainfluenza 2 (PCR) Parainfluenza 3 (PCR) Parainfluenza 4 (PCR) RSV (PCR) Entero/Rhino (PCR) 06/20/19 06/20/19 06/20/19 20:10 20:01 18:40 WBC RBC Hgb Hct MCV MCH MCHC RDW Plt Count MPV Neut % (Auto) Lymph % (Auto) [place] % (Auto) Eos % (Auto) Baso % (Auto) Neut # (Auto) Lymph # (Auto) [place] # (Auto) Eos # (Auto) Baso # (Auto) Total Counted Neutrophils % (Manual) Lymphocytes % (Manual) Monocytes % (Manual) Platelet Estimate RBC Morphology VBG pH VBG pCO2 VBG pO2 VBG HCO3 VBG Total CO2 VBG O2 Saturation VBG Base Excess Sodium Potassium Chloride Carbon Dioxide Anion Gap BUN Creatinine Estimated Creat Clear Estimated GFR Est GFR ( Amer) Glucose POC Glucose 133 H Lactate Calcium Magnesium Total Bilirubin Direct Bilirubin Indirect Bilirubin AST ALT Alkaline Phosphatase Troponin I 0.03 Total Protein Albumin Triglycerides Cholesterol LDL Cholesterol VLDL Cholesterol HDL Cholesterol Cholesterol/HDL Ratio TSH Free T4 Urine Color Yellow Urine Appearance Clear Urine pH 5.5 Ur Specific [place] 1.020 Urine Protein Negative Urine Glucose (UA) 3+ Urine Ketones 2+ Urine Blood Trace-l Urine Nitrate Negative Urine Bilirubin Negative Urine Urobilinogen 0.2 Ur Leukocyte Esterase Negative Urine RBC 3-5 Urine WBC 3-5 Ur Squamous Epith Cells Occasional Urine Bacteria Trace Chlamy pneumoniae PCR Adenovirus (PCR) B. pertussis DNA (PCR) Coronavirus OC43 (PCR) Coronavirus HKU1 (PCR) Coronavirus 229E (PCR) Coronavirus NL63 (PCR) Human Metapneumovir PCR Influenza A (H1) PCR Influ A (H1N1/09) PCR Influenza A (H3) PCR Influenza Type A Ag Influenza Type A (PCR) Influenza Type B Ag Influenza Type B (PCR) M. pneumoniae (PCR) Parainfluenza 1 (PCR) Parainfluenza 2 (PCR) Parainfluenza 3 (PCR) Parainfluenza 4 (PCR) RSV (PCR) Entero/Rhino (PCR) 06/20/19 06/20/19 06/20/19 18:28 17:20 17:04 WBC RBC Hgb Hct MCV MCH MCHC RDW Plt Count MPV Neut % (Auto) Lymph % (Auto) [place] % (Auto) Eos % (Auto) Baso % (Auto) Neut # (Auto) Lymph # (Auto) [place] # (Auto) Eos # (Auto) Baso # (Auto) Total Counted Neutrophils % (Manual) Lymphocytes % (Manual) Monocytes % (Manual) Platelet Estimate RBC Morphology VBG pH 7.32 VBG pCO2 31.3 L VBG pO2 68.4 H VBG HCO3 15.7 L VBG Total CO2 16.6 L VBG O2 Saturation 93.2 H VBG Base Excess -10.5 L Sodium Potassium Chloride Carbon Dioxide Anion Gap BUN Creatinine Estimated Creat Clear Estimated GFR Est GFR ( Amer) Glucose POC Glucose Lactate 2.0 Calcium Magnesium Total Bilirubin Direct Bilirubin Indirect Bilirubin AST ALT Alkaline Phosphatase Troponin I Total Protein Albumin Triglycerides Cholesterol LDL Cholesterol VLDL Cholesterol HDL Cholesterol Cholesterol/HDL Ratio TSH Free T4 Urine Color Urine Appearance Urine pH Ur Specific [place] Urine Protein Urine Glucose (UA) Urine Ketones Urine Blood Urine Nitrate Urine Bilirubin Urine Urobilinogen Ur Leukocyte Esterase Urine RBC Urine WBC Ur Squamous Epith Cells Urine Bacteria Chlamy pneumoniae PCR Adenovirus (PCR) B. pertussis DNA (PCR) Coronavirus OC43 (PCR) Coronavirus HKU1 (PCR) Coronavirus 229E (PCR) Coronavirus NL63 (PCR) Human Metapneumovir PCR Influenza A (H1) PCR Influ A (H1N1/09) PCR Influenza A (H3) PCR Influenza Type A Ag Negative Influenza Type A (PCR) Influenza Type B Ag Negative Influenza Type B (PCR) M. pneumoniae (PCR) Parainfluenza 1 (PCR) Parainfluenza 2 (PCR) Parainfluenza 3 (PCR) Parainfluenza 4 (PCR) RSV (PCR) Entero/Rhino (PCR) 06/20/19 06/20/19 16:25 16:25 WBC RBC Hgb Hct MCV MCH MCHC RDW Plt Count MPV Neut % (Auto) Lymph % (Auto) [place] % (Auto) Eos % (Auto) Baso % (Auto) Neut # (Auto) Lymph # (Auto) [place] # (Auto) Eos # (Auto) Baso # (Auto) Total Counted 100 Neutrophils % (Manual) 91 H Lymphocytes % (Manual) 5 L Monocytes % (Manual) 4 Platelet Estimate Normal RBC Morphology Normal VBG pH VBG pCO2 VBG pO2 VBG HCO3 VBG Total CO2 VBG O2 Saturation VBG Base Excess Sodium 139 Potassium 3.6 Chloride 102 Carbon Dioxide 20 L Anion Gap 20.6 H BUN 28 H Creatinine 1.12 Estimated Creat Clear 92 Estimated GFR 69 Est GFR ( Amer) 83 Glucose 238 H POC Glucose Lactate Calcium 8.4 L Magnesium Total Bilirubin 0.7 Direct Bilirubin 0.1 Indirect Bilirubin 0.6 AST 16 ALT 32 Alkaline Phosphatase 69 Troponin I < 0.02 Total Protein 7.6 Albumin 3.9 Triglycerides Cholesterol LDL Cholesterol VLDL Cholesterol HDL Cholesterol Cholesterol/HDL Ratio TSH Free T4 Urine Color Urine Appearance Urine pH Ur Specific [place] Urine Protein Urine Glucose (UA) Urine Ketones Urine Blood Urine Nitrate Urine Bilirubin Urine Urobilinogen Ur Leukocyte Esterase Urine RBC Urine WBC Ur Squamous Epith Cells Urine Bacteria Chlamy pneumoniae PCR Adenovirus (PCR) B. pertussis DNA (PCR) Coronavirus OC43 (PCR) Coronavirus HKU1 (PCR) Coronavirus 229E (PCR) Coronavirus NL63 (PCR) Human Metapneumovir PCR Influenza A (H1) PCR Influ A (H1N1/09) PCR Influenza A (H3) PCR Influenza Type A Ag Influenza Type A (PCR) Influenza Type B Ag Influenza Type B (PCR) M. pneumoniae (PCR) Parainfluenza 1 (PCR) Parainfluenza 2 (PCR) Parainfluenza 3 (PCR) Parainfluenza 4 (PCR) RSV (PCR) Entero/Rhino (PCR) DS: Diagnosis - Discharge Diagnosis (1) Acute URI Status: Acute (2) Acute febrile illness Status: Acute (3) Leukocytosis Status: Resolved (4) Diabetes mellitus type 2, noninsulin dependent Status: Acute (5) GERD (gastroesophageal reflux disease) Status: Acute (6) Tachycardia Status: Acute (7) HHD (hypertensive heart disease) Status: Acute Discharge Plan - Patient Discharge Instructions ACTIVITY: Continue current activity DIET: continue same diet Patient Instructions: Tachycardia, DI for Viral Upper Respiratory Infection -- Adult, DI for Tachycardia - Follow up Plan Follow up with: Bhupinder Carlos MD [Staff Physician] - 10 days Disposition: Home, Self-Shelter Medications: Home Medications Medication Instructions Recorded Confirmed Type Dapagliflozin Propanediol [Farxiga] 5 mg PO DAILY 06/20/19 06/20/19 History Metformin HCl [Metformin 1000mg 1,000 mg PO BID 06/20/19 06/20/19 History Tablets] Pravastatin Sodium [Pravachol] 20 mg PO DAILY 06/20/19 06/20/19 History Sitagliptin Phosphate [Januvia 25 mg PO DAILY 06/20/19 06/20/19 History 25mg Tablet] glyBURIDE [Diabeta 5mg tablet] 10 mg PO BID 06/20/19 06/20/19 History lisinopriL [Lisinopril 20mg Tab] 20 mg PO DAILY 06/20/19 06/20/19 History bisoproloL fumarate [Bisoprolol 10 mg PO DAILY #30 tab 06/21/19 Rx 10mg Tablet] Prescriptions/Medication Reconciliation: New bisoproloL fumarate [Bisoprolol 10mg Tablet] 10 mg PO DAILY #30 tab Continued Dapagliflozin Propanediol [Farxiga] 5 mg PO DAILY Pravastatin Sodium [Pravachol] 20 mg PO DAILY lisinopriL [Lisinopril 20mg Tab] 20 mg PO DAILY glyBURIDE [Diabeta 5mg tablet] 10 mg PO BID Sitagliptin Phosphate [Januvia 25mg Tablet] 25 mg PO DAILY Metformin HCl [Metformin 1000mg Tablets] 1,000 mg PO BID - Problem Reconciliation Problems Reviewed?: Yes
[2019-06-21 17:22] VITALS: BP 115/78
--- NOTE | 2019-06-22 16:08 | Cardiology Report ---
APPROVED REPORT EXAM: Comprehensive 2D, Doppler, and color-flow Echocardiogram Tacking Machine Operator: Keisha ReaMARYAN Ht: 5 ft 9 in Wt: 186lbs BSA: 2.00 BP: 132/67 mmHg Indications: Tachycardia, DM,Palps 2D Dimensions LVOT 2.05 cm (M/F) 1.5-2.5 M-Mode Dimensions RVDd 2.81 cm (0.9-2.6)LVDd 4.25 cm (3.5-5.7) LVDs 2.31 cm (3.5-5.7)IVSd 1.18 cm (0.6-1.1) PWd 0.99 cm (0.6-1.1)EF (Teich) 77.40% FS 45.60% EDV (Teich) 80.80 mL ESV (Teich) 18.30 mL LV Diastology E/A Ratio 0.75 Mitral Valve MV A Velocity 84.00 (40-130 cm/s) Left Ventricle Left atrium is mildly enlarged, left ventricle is normal size, mild concentric left ventricular hypertrophy, hyperdynamic left ventricular systolic function, visually estimated ejection fraction over 65% with no regional wall motion abnormality, grade 1 diastolic dysfunction seen without tissue Doppler evidence of raise left atrial pressure. Right Ventricle Right atrium and right ventricle mildly enlarged with normal contractility. Aortic Valve Aortic valve is minimally thickened and fibrosed. Mitral Valve Mitral valve is grossly normal, there is no mitral stenosis, there is mild mitral regurgitation. Tricuspid Valve Tricuspid valve is grossly normal, there is no tricuspid stenosis, there is mild tricuspid regurgitation. Pulmonic Valve Pulmonic valve is poorly visualized. Great Vessels Aortic root is normal size. Pericardium No significant pericardial effusion noted. Conclusion 1. Mildly enlarged left atrium, normal left ventricular size, mild concentric left ventricular hypertrophy, hyperdynamic left ventricular systolic function, visually estimated ejection fraction over 65% with no regional wall motion abnormality, grade 1 diastolic dysfunction seen without tissue Doppler evidence of raise left atrial pressure. 2. Mildly enlarged right ventricle with normal contractility. 3. Mild mitral and tricuspid regurgitation. 4. No significant pericardial effusion noted. Electronically signed by : Juan Mcclelland, 06/22/2019 16:07:05
--- NOTE | 2019-06-25 07:53 | Electrocardiograph Report ---
APPROVED REPORT Exam: Resting ECG HR:107 bpm ECG Measurements Heart Rate 107 AXES VA 152 P 26 QRSd 92 QRS 31 QT 334 T37 QTc 445 <Conclusion> Sinus tachycardia Otherwise normal ECG Electronically signed by : Wes Alcantar, 06/25/2019 07:53:23
== END 2019-06-21 17:45 | disposition home or self-care (01) ==
LOC: ER 16:19 → 2ND 16:19
PROVIDERS: ADMIT Internal Medicine Adolescent Medicine; ATTEND Internal Medicine Adolescent Medicine
CPT/HCPCS: 36415; 70450; 70486; 71020; 71046; 71275; 74177; 80048; 80061; 80076; 81001; 82803; 82962; 83605; 83735; 84439; 84443; 84484; 85007; 85025; 87040; 87275; 87276; 87486; 87581; 87633; 87798; 93005; 93306; 96365; 96366; 99285; G0378; Q9967

== ENCOUNTER → 2019-07-11 06:23 | Outpatient (CLI) | payer BC, SELFPAY ==
--- NOTE | 2019-07-11 06:24 | NM_ITS ---
APPROVED REPORT Exam: Nuclear Stress Test Indication: HTN, DM, TACHYCARDIA, High cholesterol, Former tobacco use, Family history Patient Location: Outpatient Stress Tech: Lisseth Parry [place] Tech:Purvi Davis, ARRT, RT (R)(N) Ht: 5 ft 9 in Wt: 186 lbs HR: 56 bpm BP: 122/83 mmHg BSA: 2.00 m2 BMI: 27.4 History: HTN, DM, TACHYCARDIA, High cholesterol, Former tobacco use, Family history Procedure: Patient exercised on Bong protocol 10:30 minutes and sec, resting heart rate 56 bpm, resting blood pressure 122/83 mmHg, with exercise maximum heart rate achived was 127 bpm which is Less than 85 % of the maximum predicted heart rate and blood pressure was 190/94 mmHg. Test was stopped due to SOA and fatigue. Patient denied any complaint of chest pain. Patient has Good exercise capacity, achieved 12.8 METs of workload on treadmill, the blood pressure response to exercise was Adequate. Electrocardiogram Resting electrocardiogram showed sinus rhythm, with exercise there is less than 1.[address] segment depression noted from the baseline EKG. The EKG portion of the exercise Myoview is nondiagnostic as patient did not achieve the target heart rate. Cardiac Stress and Resting SPECT Images: Cardiac Stress and Resting SPECT images were obtained using technetium 99m Myoview 30.6 mCi stress and 10.33 mCi at rest. Gated SPECT for analysis of segmental wall motion and calculation of the ejection fraction also done. Cardiac stress and resting SPECT images show uniform myocardial activity without segmental perfusion abnormality, computer derived ejection fraction is 46% with no regional wall motion abnormality, right ventricle is moderately enlarged with normal contractility. Conclusion: 1. The EKG portion of the exercise Myoview is nondiagnostic as patient did not achieve the target heart rate, patient has good exercise capacity achieved 12.8 mets of workload on treadmill, the blood pressure response to exercise was adequate, there was no exercise-induced chest discomfort. 2. No scintigraphic evidence of reversible ischemia seen, computer derived ejection fraction is 46% with no regional wall motion abnormality, right ventricle is moderately enlarged with normal contractility. Electronically signed by : Juan Mcclelland, 07/11/2019 21:29:35
--- NOTE | 2019-07-11 06:24 | CA_ITS ---
APPROVED REPORT Exam: Exercise Treadmill Technologist: Lisseth Parry Ht: 5 ft 9 in Wt: 186 lbs BSA: 2.00 m2 Indications: Tachycardia Medical History Medications: Lisinopril,,,,, Pravastatin,,,,, Metformin,,,,, GlYBURIDE,,,,, BisOPROLOL,,,,, Sitagliptin,,,,, DApagliflozin,,,,, Stress Test Details Test: Bong HR Resting HR: 56 bpm Max Heart Rate (APMHR): 168 bpm Max HR Achieved: 127 bpm Target HR (85% APMHR): 142 bpm % of APMHR: 75 Recovery HR: 74 bpm BP Resting BP: 122.0/83.0 mmHg Max BP: 190.0/94.0 mmHg Recovery BP: 137.0/89.0 mmHg ECG Clinical Exercise duration: 10:30 min Highest Stage Achieved: Exercise capacity: 12.8 METs Stress ECG Conclusion Resting ECG: Sinus bradycardia, cannot rule out old septal NH. Patient exercised 10:30 on Bong Protocol. Test stopped due to shortness of air, fatigue. Symptoms: No chest pain. Arrhythmias/Ectopy: Rare fusion beat. ST-T Changes: Normal ST response to exercise. Conclusion: Normal GXT to heart rate acheived (76% of PM). Blunted heart rate response. Myoivew images reported separately. Test Summary REST . . . . . . . Sitting REST . . . . . . . Standing REST 18:42 0.0 0.0 56 . 122/ 83 . . Stage 1 01:00 10.0 1.7 74 . . . . Stage 1 02:00 10.0 1.7 82 . . . . Stage 1 03:00 10.0 1.7 83 . 144/ 86 . . Stage 2 01:00 12.0 2.5 86 . . . . Stage 2 02:00 12.0 2.5 87 . . . . Stage 2 03:00 12.0 2.5 89 . 150/ 85 . . Stage 3 01:00 14.0 3.4 102 . . . . Stage 3 02:00 14.0 3.4 96 . . . . Stage 3 03:00 14.0 3.4 109 . 164/ 85 . . Stage 4 . . . . . . . Myoview Injected Stage 4 01:00 16.0 4.2 119 . . . . Stage 4 01:30 16.0 4.2 127 . . . Stop exercise at 10:30 RECOVERY 01:00 0.0 0.0 98 . 190/ 94 . . RECOVERY 02:00 0.0 0.0 88 . 190/ 94 . . RECOVERY 03:00 0.0 0.0 78 . 168/ 93 . . RECOVERY 04:00 0.0 0.0 75 . 168/ 93 . . RECOVERY 05:00 0.0 0.0 76 . 137/ 89 . . RECOVERY 05:24 0.0 0.0 74 . 137/ 89 . . Electronically signed by : Juan Mcclelland, 07/11/2019 21:16:30
--- NOTE | 2019-07-11 08:19 | HMH.ITSHM ---
Current Home Medications as stated by this patient Chavez Moon or international representative. []LISINOPRIL GLYBURIDE BISOPROLOL JANUVIA PRAVASTATIN METFORMIN FARXIGA
== END ==
PROVIDERS: PCP Family Medicine; Visit Provider Physician Assistant
DX: R00.0 Tachycardia, unspecified (principal); R00.2 Palpitations; I11.9 Hypertensive heart disease without heart failure; E11.9 Type 2 diabetes mellitus without complications; Z79.84 Long term (current) use of oral hypoglycemic drugs
CPT/HCPCS: 78452; 93017; A9502